=== PATIENT | male | born 1980 | race Caucasian/White ===

== ENCOUNTER 2018-02-13 16:49 | Emergency (ER) | payer OTHER ==
[~2018-02-13] VITALS: Ht 195.6 cm; Wt 101.0 kg
[~2018-02-13 16:49] MED LIST: AMOXICILLIN500 MG PO; ANUCORT-HC25 MG RE; BACTRIM DS1 TAB OR; FLAGYL500 MG OR; NO HOME MEDS; PANTOPRAZOLE SO40 MG PO; PERCOCET 5/325M1 TAB OR; RANITIDINE150 MG OR; ZOFRAN ODT4 MG PO; [UNRECOGNIZED DRUG - OTHER] PO
[2018-02-13 17:16] VITALS: BP 143/86
[2018-02-13] MEDS ORDERED: FLEXERIL PO (18:37)
[2018-02-13] MEDS ORDERED: NAPROSYN500 MG PO (18:37)
== END 2018-02-13 18:50 | disposition home or self-care (01) | DRG 563 ==
LOC: ED 16:49
DX: S63.502A Unspecified sprain of left wrist, initial encounter (principal); S33.5XXA Sprain of ligaments of lumbar spine, initial encounter; V49.40XA Driver injured in collision with unspecified motor vehicles in traffic accident, initial encounter

== ENCOUNTER 2022-06-01 06:28 | Day surgery (SDC) | payer SELFPAY ==
[~2022-06-01 06:28] MED LIST changes: +ACETAMINOP160 MG/5 M PO; +CARAFATE1 GM PO; +FLEXERIL PO; +NAPROSYN500 MG PO; +PROTONIX20 M1 PO
[2022-06-01 08:20] VITALS: BP 127/80
== END 2022-06-01 08:05 | disposition home or self-care (01) | DRG 392 ==
LOC: ENDO 06:28 → ORM 07:30 → ENDO 08:05 → ORM 08:30
PROVIDERS: ATTEND Internal Medicine Gastroenterology
PROC: 0DB98ZX Excision of Duodenum, Via Natural or Artificial Opening Endoscopic, Diagnostic (ICD-10-PCS; principal; 2022-06-01)
PROC: 0DB78ZX Excision of Stomach, Pylorus, Via Natural or Artificial Opening Endoscopic, Diagnostic (ICD-10-PCS; 2022-06-01)
PROC: 0DB28ZX Excision of Middle Esophagus, Via Natural or Artificial Opening Endoscopic, Diagnostic (ICD-10-PCS; 2022-06-01)
PROC: 0DB48ZX Excision of Esophagogastric Junction, Via Natural or Artificial Opening Endoscopic, Diagnostic (ICD-10-PCS; 2022-06-01)
DX: K21.00 Gastro-esophageal reflux disease with esophagitis, without bleeding (principal); K29.70 Gastritis, unspecified, without bleeding